=== PATIENT | male | born 1980 ===

== ENCOUNTER 2021-03-16 22:32 | Emergency (ER) | payer OTHER ==
[~2021-03-16] VITALS: Ht 185.4 cm; Wt 86.4 kg
[2021-03-16 22:52] VITALS: TEMP 97.8
[2021-03-17 00:43] VITALS: BP 128/70; PULSE 64
== END 2021-03-17 00:43 | disposition home or self-care (01) ==
LOC: COL.ER 22:32
DX: F41.9 Anxiety disorder, unspecified (principal); F10.20 Alcohol dependence, uncomplicated
CPT/HCPCS: J3360; J7030